=== PATIENT | male | born 1930 | race Caucasian/White ===

== ENCOUNTER 2016-04-06 10:01 | Inpatient (IN) | payer OTHER ==
--- NOTE | ~2016-04-06 | DS ---
Discharge Summary [facility] [address] [place]. [address] NAME: ANSLEY LONGORIA : 29 STATUS : DIS IN PAT#: [id number] AGE: 85 ADM/REG DATE : 04/06/16 MR#: [id number] REPORT SERV DATE: 04/12/16 DICTATED BY: RAMAKRISHNA NICKERSON DATE: 04/11/16 REPORT STATUS : Draft TRANSCRIBED BY: MODL DATE: 04/11/16 ADMISSION DATE: 04/06/2016 DISCHARGE DATE: 04/11/2016 DISCHARGE DIAGNOSES: 1. Hypoxic respiratory failure, acute on chronic, now requiring 2 liters of O2 in the home setting; systolic congestive heart failure, acute on chronic. 2. Acute kidney injury. Current creatinine stable at 1.6. 3. Urinary retention, status post Miranda catheter to be followed up in the outpatient setting by Urology. 4. Chronic anemia due to chronic disease. 5. Obstructive uropathy. 6. Paroxysmal atrial fibrillation. 7. Dual-chamber implantable cardioverter defibrillator to be upgraded to a biventricular pacer. 8. History of syncope. 9. Benign prostatic hypertrophy, status post transurethral resection of the prostate. 10.Coronary artery disease, status post coronary artery bypass graft x3 in the past. 11.History of atrial septal defect and ventricular septal defect repair. 12.Monoclonal gammopathy of unknown significance. 13.Longstanding ischemic cardiomyopathy. 14.Debility. CONSULTANTS DURING THIS HOSPITALIZATION: 1. Ish Stahl M.D. and Ranjith Mckeon M.D. of Cardiology. 2. Lester Cooney M.D. of [facility]. INVASIVE PROCEDURES DONE DURING THIS HOSPITALIZATION: None. BRIEF HISTORY OF PRESENT ILLNESS: The patient is an 85-year-old gentleman who presented with worsening shortness of breath, orthopnea, and paroxysmal nocturnal dyspnea that was ongoing for two weeks. So, he was admitted. For detailed history and physical exam, please see note dictated by Dr. Tiffanie Pereyra on 04/06/2016. HOSPITAL COURSE: After being admitted to the hospital, this patient was cared for by Dr. Nicholas Arnett and multiple consultants. Upon admission, this patient was placed on IV diuretics, oxygen support nebulizing treatments and appropriate consultation care was obtained. Cardiology saw the patient in consultation as well as Nephrology saw the patient in consultation because of significant elevation in creatinine on admission. His admission creatinine was 2.43, which has since come down to about 1.6 on the day of discharge. Nephrology signed off as this was thought to be due to benign prostatic hypertrophy and obstructive uropathy. Miranda catheter was placed, that seemed to improve his overall kidney function. At that point, Urology was consulted and Urology recommended use of finasteride and Flomax, which have been initiated and leaving the Miranda in until seen by Urology. Cardiology continued to monitor the diuretics. Dr. Arnett continued to follow the patient. Iron studies were done because of his anemia and they remained unremarkable, this was Discharge Summary [address] [place]. [address] NAME: ANSLEY LONGORIA : 29 STATUS : DIS IN PAT#: [id number] AGE: 85 ADM/REG DATE : 04/06/16 MR#: [id number] REPORT SERV DATE: 04/12/16 DICTATED BY: RAMAKRISHNA NICKERSON DATE: 04/11/16 REPORT STATUS : Draft TRANSCRIBED BY: AYAD DATE: 04/11/16 thought to be an anemia of chronic disease. This patient continued to do well. His ejection fraction was in the 30s on echocardiogram. This patient continued to improve. Urology signed off his care and recommended followup in the outpatient setting in two to three weeks. Nephrology signed off his care as his obstructive uropathy was resolved. Cardiology has okayed his discharge on oral diuretics. He will be scheduled to see Dr. Ranjith Mckeon again in the office for upgrading his device to a BiV pacer. On the day of discharge, this patient required still 2 liters of nasal cannula O2. I personally checked his room air saturation, it went down to 74% at rest and quickly recovered to about 92% with 2 liters of nasal cannula, so we will arrange home O2. This was explained to the patient and he understands and agrees. We will also arrange home health care with heart failure education and an early followup with his primary care physician for further adjustments of his diuretics and medications as needed. DISCHARGE DISPOSITION: Home. DISCHARGE ACTIVITY: As tolerated. DISCHARGE DIET: Low-sodium diet. DISCHARGE MEDICATIONS: Flomax 0.4 mg one tablet daily, Proscar 5 mg once daily, aspirin 81 mg once daily, amiodarone 200 mg once daily, Bumex 2 mg twice daily, BuSpar 10 mg three times daily, Coreg 6.25 mg p.o. twice daily, Aricept 5 mg once at bedtime, gabapentin 300 mg twice daily, Imdur 60 mg once daily, Lorazepam 1 mg once at bedtime, Protonix 40 mg once daily, Zocor 20 mg once at bedtime, Tylenol 1000 mg p.o. daily p.r.n., Artificial Tears as needed, and nitroglycerin 0.4 sublingual p.r.n. DISCHARGE FOLLOWUP: With Dr. Ranjith Mckeon to be scheduled by his office. With Dr. Christopher Ferrara in one week. More than 40 minutes spent planning this patient's discharge, reconciling medications, writing prescriptions, discussing hospital care and follow up with the patient, arranging home O2, and documenting this discharge. MARY/AYAD Ramakrishna Nickerson M.D. / [id number] CC: Malcolm Hoyos M.D. Kymber Habenicht, M.D. Gregg Shander, M.D.
--- NOTE | ~2016-04-06 | PRECARD ---
H&P [address] [place]. [address] NAME: ANSLEY OWENS : 29 STATUS : ADM IN [facility]#: [id number] AGE: 85 ADM/REG DATE : 04/06/16 MR#: [id number] REPORT SERV DATE: 04/06/16 DICTATED BY: MALU STAHL DATE: 04/06/16 REPORT STATUS : Draft TRANSCRIBED BY: AYAD DATE: 04/06/16 DATE OF ADMISSION: 04/06/2016 HISTORY OF PRESENT ILLNESS: Mr. Ansley Owens is an 85-year-old gentleman, referred by the Hospitalist Service with heart failure symptoms. Mr. Owens has a rather complex medical history. He has had history of ASD and VSD, which has undergone repair. He has ischemic cardiomyopathy, he has undergone bypass surgery 1979, 1992, and 2005. The ejection fraction about 30%. He has a dual-chamber ICD. His ICD is about 10 years old. He also had a history of atrial tachycardia and atrial fibrillation. He has been on amiodarone. He is not on anticoagulation because of history of GI bleeds with arteriovenous malformations. He describes an approximate 1 month history of dyspnea. He describes orthopnea and PND. He has had dyspnea on exertion with leg edema. He has had no AICD shocks. He describes occasional episodes of chest discomfort. These seem to occur randomly, sporadically. No clear association with exertion. PAST MEDICAL HISTORY: GI Bleed, a trial fibrillation, SVT, ASD, VSD. HOME MEDICATIONS: 1. Tylenol. 2. Amiodarone 200 daily. 3. Requip. 4. Artificial Tears. 5. Aspirin. 6. Bumex 2 mg p.o. b.i.d. 7. BuSpar. 8. Carvedilol 6.25 mg b.i.d. 9. Aricept 5 at bedtime. 10.Lasix 40 daily. 11.Neurontin. 12.Isosorbide mononitrate. 13.Lorazepam. 14.Nitroglycerin sublingual. 15.Protonix. 16.Simvastatin 20 at bedtime. SOCIAL: No alcohol or tobacco, previously smoked. FAMILY HISTORY: Noncontributory. H&P [address] [address] NAME: ANSLEY OWENS : 29 STATUS : ADM IN PAT#: [id number] AGE: 85 ADM/REG DATE : 04/06/16 MR#: [id number] REPORT SERV DATE: 04/06/16 DICTATED BY: MALU STAHL DATE: 04/06/16 REPORT STATUS : Draft TRANSCRIBED BY: AYAD DATE: 04/06/16 REVIEW OF SYSTEMS: Complete review of systems obtained, pertinent negative and unremarkable except as noted above and below. No hematochezia, melena, or hemoptysis recently. PHYSICAL EXAMINATION: VITAL SIGNS: Blood pressure is about 130/70, heart rate about 60. GENERAL: Appears in minimal distress, chronically ill. HEENT: No xanthelasma; lips without cyanosis LUNGS: Clear to auscultation, no wheezes, rales or rhonchi; good breath sounds. COR: A 2/6 systolic murmur at the left lower sternal border. ABDOMEN: Bowel sounds positive, normal activity, without tenderness, masses or hepatosplenomegaly. EXTREMITIES: 4/4 severe edema. SKIN: Normal turgor. Ms: Normal muscle strength, without kyphosis/scoliosis. NEURO/PSYCH: Alert and oriented times 4, no apparent anxiety or depression. LABORATORY DATA: Creatinine is 2.4, hematocrit 33.8, troponin 0.03. BNP 456. EKG is AV paced. ASSESSMENT: Mr. Owens is a very nice 85-year-old gentleman with ischemic cardiomyopathy. He has symptoms about a month. He has severe leg edema. His creatinine is elevated at 2.4, the BNP is 456. Troponin is 0.03. PLAN: 1. We will interrogate his [employer] AICD, it appears to be close to end-of-life, it is 10 years old. 2. Nephrology has been consulted, I will defer to them about the diuretic regimen. 3. He may be a candidate for a biventricular pacing in the future. KAREN/AYAD Malu Stahl M.D. / [id number] CC: Malcolm Hicks M.D.
--- NOTE | ~2016-04-06 | CN ---
Consultation Report [facility] [address] [place]. [address] NAME: ANSLEY OWENS : 29 STATUS : ADM IN PAT#: [id number] AGE: 85 ADM/REG DATE : 04/06/16 MR#: [id number] REPORT SERV DATE: 04/07/16 DICTATED BY: DATE: REPORT STATUS : Draft TRANSCRIBED BY: MODL DATE: 04/06/16 CONSULTATION REPORT DATE OF CONSULTATION: REASON FOR CONSULTATION: Acute kidney injury. HISTORY OF PRESENT ILLNESS: Mr. Owens is an 85-year-old white male with CKD, baseline of 1.5. He also has a longstanding history of CHF with EF of 30%; coronary artery disease, multiple bypasses and stents. He presents to the hospital for shortness of breath and orthopnea. Recently, his primary care doctor for increasing edema had gone from 1 mg of Bumex daily up to 2 mg twice daily. Despite this, he has had worsening edema. He also stopped urinating. He had actually been having trouble with urinary hesitancy and incomplete bladder emptying for approximately a month now. He does have a history of BPH with TURP that has been a long time ago up in [place], [place]. He presented to the hospital, his creatinine was 2.4, and we were asked to see him in consultation. In the emergency department, before my arrival, he did have a Miranda placed and immediately had a 1 liter return of urine. He has also had significant urine output since. His shortness of breath is already better. Denies any fevers, chills, cough, or congestion. No chest pain, tightness, or pressure. PAST MEDICAL HISTORY: CKD with baseline of 1.5, CHF with EF of 60, coronary artery disease with multiple bypasses and stents, GI bleed, reflux, dementia, BPH with TURP, paroxysmal atrial fibrillation, monoclonal gammopathy of unknown significance, chronic back pain, paroxysmal atrial fibrillation, SVT, mitral regurgitation, and ASD with repair. SOCIAL HISTORY: He is . Has a distant history of tobacco. No alcohol or illicit drug use. ALLERGIES: NAPROXEN AND MORPHINE. MEDICATIONS: Acetaminophen, amiodarone, Artificial Tears, aspirin, Bumex, BuSpar, Coreg, Aricept, furosemide, gabapentin, isosorbide, lorazepam, nitroglycerin, simvastatin, and Protonix. FAMILY MEDICAL HISTORY: No end-stage renal disease. REVIEW OF SYSTEMS: A 12-point review of systems was obtained, negative with the exception of that in the HPI. PHYSICAL EXAMINATION: VITAL SIGNS: Temp 96.9, blood pressure 133/69, pulse 60, respiratory rate 22, and O2 saturation of 95%. GENERAL: This is a pleasant, cooperative white male. He is awake, alert, and oriented x3, Consultation Report [address] [place]. [address] NAME: ANSLEY OWENS : 29 STATUS : ADM IN PAT#: [id number] AGE: 85 ADM/REG DATE : 04/06/16 MR#: [id number] REPORT SERV DATE: 04/07/16 DICTATED BY: DATE: REPORT STATUS : Draft TRANSCRIBED BY: AYAD DATE: 04/06/16 in no acute distress, and answers questions appropriately. HEENT: Normocephalic and atraumatic. Conjunctivae are clear. Sclerae are anicteric. Pupils are equal and round. Oral mucosa is moist. NECK: Supple. Carotids are without bruits. Neck veins are flat. No lymphadenopathy. LUNGS: Respirations are even and unlabored. He has a few crackles to bases, right greater than left. HEART: Rate is regular. He does have a systolic murmur. No rub or gallop. ABDOMEN: Soft and nontender. Bowel sounds are active. No masses. No hepatosplenomegaly. No bruits. No CVA tenderness. BACK: Within normal limits. EXTREMITIES: He has trace to 1+ pitting edema. SKIN: Pale. No unusual rashes or skin lesions. NEURO: Generalized weakness. No focal deficits. Mood and affect, pleasant and appropriate. PERTINENT LABS AND X-RAYS: BNP of 456. Chest x-ray without any significant edema. Sodium 142, potassium 3.9, chloride 102, CO2 30, BUN of 58, creatinine of 2.4, calcium 8.2, and magnesium of 2. Troponin of 0.03. WBC 5, H and H of 11 and 33, and platelets 107,000. ABG with pH of 7.3, pCO2 of 53, PO2 of 113, and bicarb of 29. IMPRESSION: 1. Acute kidney injury. 2. Chronic kidney disease, stage III with baseline of 1.5. 3. Urinary retention with lower urinary tract symptoms x1 month. 4. History of benign prostatic hypertrophy with transurethral resection of the prostate. 5. Congestive heart failure. 6. Coronary artery disease. PLAN/RECOMMENDATION: Most likely his acute kidney injury is secondary to obstruction as he has already had significant diuresis. We will follow I's and O's, labs, check urine studies. He has a Miranda that we will leave in place and ask Urology to see him, and we will follow along with you. Further recommendations regarding diuretic management to come. We will follow along with you. Thank you for the consultation. Strict I's and O's. Daily labs. BRODY/AYAD LISA Tenorio / [id number] Consultation Report [address] [place]. [address] NAME: ANSLEY OWENS : 29 STATUS : ADM IN PAT#: [id number] AGE: 85 ADM/REG DATE : 04/06/16 MR#: [id number] REPORT SERV DATE: 04/07/16 DICTATED BY: DATE: REPORT STATUS : Draft TRANSCRIBED BY: AYAD DATE: 04/06/16 CC: Malcolm Hicks M.D.
--- NOTE | ~2016-04-06 | CN ---
Consultation Report [facility] [address] [place]. [address] NAME: ANSLEY LONGORIA : 29 STATUS : ADM IN PAT#: [id number] AGE: 85 ADM/REG DATE : 04/06/16 MR#: [id number] REPORT SERV DATE: 04/08/16 DICTATED BY: LESTER COONEY DATE: 04/07/16 REPORT STATUS : Draft TRANSCRIBED BY: MODL DATE: 04/07/16 UROLOGY CONSULT DATE OF CONSULTATION: 04/07/2016 This consult is from Dr. Pereyra regarding urinary retention. CHIEF COMPLAINT: "I couldn't empty my bladder." HISTORY: This is an 85-year-old gentleman who presented to the [facility] Emergency Room yesterday because of worsening shortness of breath, dyspnea, generalized weakness, and worsening edema. This was despite an increased dose of Bumex over the past 2 weeks. Amongst other findings, he had a Miranda catheter placed and 1 L of urine was drained from his bladder. The patient states he was having difficulty voiding prior to admission. The patient states he had a TURP in the s in [place], [place]. He then moved away after that and has just moved back to [place] here in the past several years. He has not had any voiding problems until just these past several weeks. He does not have a current urologist. PAST MEDICAL HISTORY: Coronary artery disease, congestive heart failure with an ejection fraction of 31%; dilated aortic root; GI bleed with an AV malformation treated by Dr. Murcia; history of atrial fibrillation; congenital heart disease, repaired in 1979 which appears to have been atrial septal defect and a ventricular septal defect; moderate mitral regurgitation. He takes dementia medication. Chronic kidney disease, stage 3, baseline creatinine between 1.5 and 1.6. Monoclonal gammopathy. Paroxysmal atrial fibrillation. Chronic respiratory failure secondary to CHF exacerbation. History of supraventricular tachycardia. History of AICD malfunction. Chronic back pain due to chronic back and disk disease. PAST SURGICAL HISTORY: Coronary artery bypass, pacer ICD placement, TURP, appendectomy, ASD, ventricular septal defect repair, multiple coronary artery stent placements at least 12 times. ALLERGIES: MORPHINE AND NAPROXEN. MEDICATIONS ON ADMISSION: Tylenol 1000 mg a day p.r.n., amiodarone, Artificial Tears, aspirin 81 mg a day, Bumex 2 mg twice a day, BuSpar 10 mg 3 times a day, carvedilol. Aricept, Lasix 40 mg a day, Neurontin 300 mg twice a day, isosorbide, Ativan 1 mg at bedtime, nitroglycerin as needed, Protonix, and simvastatin. SOCIAL HISTORY: He is . He and his live next door to his daughter in [place]. He has quit smoking in 1979. Denies any alcohol abuse. He does occasionally drink a beer. 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 REVIEW OF SYSTEMS: Consultation Report [facility] [address] [place]. [address] NAME: ANSLEY LONGORIA : 28 STATUS : ADM IN [facility]#: [id number] AGE: 85 ADM/REG DATE : 04/06/16 MR#: [id number] REPORT SERV DATE: 04/08/16 DICTATED BY: LESTER COONEY DATE: 04/07/16 REPORT STATUS : Draft TRANSCRIBED BY: AYAD DATE: 04/07/16 GENERAL: He denies any fevers, but he is weak. NEUROLOGIC: Denies symptoms. LUNGS: As above. HEART: As above. GI: Denies symptoms. : As above. MUSCULOSKELETAL: As above. PHYSICAL EXAMINATION: VITAL SIGNS: Shows he is afebrile. Blood pressure 135/68, pulse of 60, respirations of 18, he is saturating 92% on 3 L nasal cannula. He has had 800 mL in today and 1875 mL out, one bowel movement today. GENERAL: He is in no acute distress. NEUROLOGIC: Alert and oriented x3. PSYCHIATRIC: Appropriate. HEENT: Facial features symmetric. Eyes: Sclerae anicteric. NECK: Supple. LUNGS: Decreased inspiratory effort bilaterally. HEART: Regular rate and rhythm. ABDOMEN: Soft. EXTREMITIES: Show bilateral lower extremity edema. Urine is clear. LABORATORY STUDIES: White count of 4.7, hemoglobin 11.2, and platelets of 108. His creatinine has decreased to 2.16 from 2.43. Renal ultrasound obtained today shows normal kidneys bilaterally without any evidence of hydroureteronephrosis or masses. Bladder is collapsed around the Miranda catheter balloon. IMPRESSION: 1. Urinary retention. 2. Overdistention injury of the bladder. PLAN: 1. Primary team started Flomax today. We will add finasteride to that. Prescriptions on the chart. 2. Miranda catheter needs to stay in for 2 weeks to allow his bladder muscles to heal after the overdistention injury. 3. He may follow up in my office in 2 weeks for a fill and pull voiding trial in office visit. I have discussed all of this with the patient and he is in agreement. GILBERT/AYAD Consultation Report [address] [place] [place]. [address] NAME: ANSLEY LONGORIA : 29 STATUS : ADM IN PAT#: [id number] AGE: 85 ADM/REG DATE : 04/06/16 MR#: [id number] REPORT SERV DATE: 04/08/16 DICTATED BY: LESTER COONEY DATE: 04/07/16 REPORT STATUS : Draft TRANSCRIBED BY: AYAD DATE: 04/07/16 Lester Cooney M.D. / [id number] CC: Malcolm Grider M.D.
--- NOTE | ~2016-04-06 | HP ---
History And Physical [address] [id number] [facility] [place]. [address] NAME: ANSLEY LONGORIA : 29 STATUS : ADM IN PAT#: [id number] AGE: 85 ADM/REG DATE : 04/06/16 MR#: [id number] REPORT SERV DATE: 04/06/16 DICTATED BY: TARA GASTELUM DATE: 04/06/16 REPORT STATUS : Draft TRANSCRIBED BY: MODL DATE: 04/06/16 DATE OF ADMISSION: 04/06/2016 COFFEE ROASTER: Ranjith Mckeon M.D. HISTORY OF PRESENT ILLNESS: The patient is extremely pleasant 85-year-old male who presented to [facility] because of worsening shortness of breath, orthopnea, and paroxysmal nocturnal dyspnea for the last two weeks, which was progressively increasing. He also passed out one time, although he immediately regained his consciousness. He was complaining of tightness in the chest and being swollen overall in the body and in his legs, weakness, fatigue, as well as his dose of Bumex was increased from 1 mg as needed to 2 mg twice a day by primary care physician, but he was not producing enough urine, he was unable to urinate. On presentation to emergency room, the patient was hypoxemic and his oxygen saturation was 76 and he was placed on nonrebreather. It increased to 94%. Now he is on 4 L by nasal cannula. He now denies any chest pain, no shortness of breath. Miranda catheter was placed and immediately more than 1 L of urine came out, and the patient felt some relief as well as emergency room physician, Dr. Hawkins gave the patient 2 mg of Bumex intravenously. Currently, he is feeling better. No chest pain. No shortness of breath at rest. All 14- point review of systems done and negative except what is stated in the history of present illness. PAST MEDICAL HISTORY: Known for history of coronary artery disease with 3 separate coronary artery bypass grafting operation; history of congestive heart failure with last echocardiogram done last month in 02/2016 showed ejection fraction of 31% with dilated aortic root; history of GI bleed with arteriovenous malformation treated by Dr. Murcia; history of atrial fibrillation; history of congenital heart disease what appears to be an atrial septal defect and ventricular septal defect repair in 1979; moderate mitral regurgitation, although the patient denies dementia, but he is on dementia medicine; history of chronic kidney disease, stage 3 with baseline creatinine between 1.5 to 1.6; history of monoclonal gammopathy of undetermined significance. He also had paroxysmal atrial fibrillation, but he is not a candidate for anticoagulation; chronic respiratory failure secondary to CHF exacerbation last admission; history of supraventricular tachycardia; history of AICD malfunction and they said that his AICD needs to be updated and he had an appointment with Dr. Mckeon, but he missed his appointment because he got hospitalized now; history of chronic back pain with chronic steroid injections into his back. PAST SURGICAL HISTORY: Includes coronary artery bypass operation, pacer ICD placement, transurethral prostatic resection, appendectomy as a child, ASD and ventricular septal defect repair in 1979 as well as he has multiple stent placements at least 12 stent placements. ALLERGIES: HE IS ALLERGIC TO MORPHINE AND NAPROXEN. SOCIAL HISTORY: Quit smoking in 1979. No alcohol abuse. Drinks occasionally beer. He lives in [place], [place]. . His and daughter are at the bedside. He denies any recreational drug use. No smoking. 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 History And Physical [address] [address] NAME: ANSLEY LONGORIA : 29 STATUS : ADM IN [facility]#: [id number] AGE: 85 ADM/REG DATE : 04/06/16 MR#: [id number] REPORT SERV DATE: 04/06/16 DICTATED BY: TARA GASTELUM DATE: 04/06/16 REPORT STATUS : Draft TRANSCRIBED BY: AYAD DATE: 04/06/16 FAMILY HISTORY: His mother at the age of 89 from heart disease and father from Parkinson disease. HOME MEDICATIONS: Include Tylenol 1000 mg daily as needed; amiodarone 200 mg daily; artificial tears daily; aspirin 81 mg daily; Bumex 2 mg twice a day; BuSpar 10 mg three times daily; carvedilol 6.25 mg p.o. b.i.d., Aricept 5 mg daily; Lasix 40 mg daily was added by primary care physician recently to Bumex; Neurontin 300 twice a day; isosorbide 160 mg daily; Ativan 1 mg at bedtime; nitroglycerin 0.4 as needed for chest pain; Protonix 40 mg daily; simvastatin 40 mg daily. PHYSICAL EXAMINATION: GENERAL: Obese male, not in acute distress. Resting quietly. VITAL SIGNS: Blood pressure 110/62, temperature 97.5, heart rate 60, respiratory rate 20, oxygen saturation initially was 76% on room air. Currently, he is on 4 L nasal cannula. Oxygen saturation 96. HEENT: Head atraumatic and normocephalic. Conjunctivae clear. Pupils are equal and reactive to light and accommodation. Extraocular muscles are intact. NECK: Supple. Trachea is midline. No supraclavicular or cervical lymphadenopathy. LUNGS: Diminished breath sounds bilaterally with slightly decreased respiratory effort. No respiratory distress. CARDIOVASCULAR: Regular rate and rhythm. Point of maximal impulse not displaced. ABDOMEN: Obese, soft, nontender, mildly distended, edematous, anasarca positive. No organomegaly. EXTREMITIES: No clubbing, cyanosis. 1+ edema. NEUROLOGIC: Awake, alert, and oriented in time, place, and person. Muscle strength is 5/5 bilaterally in upper and lower extremities. PSYCHIATRIC: Normal mood and affect. LABORATORY RESULTS: Sodium 142, potassium 3.9, chloride 102, carbon dioxide 30, BUN 58, creatinine 2.43, blood sugar 97. Troponin 0.03. Magnesium 2. His baseline creatinine on 02/14/2016 was 1.5. BNP was 456. White count 5, hemoglobin 11.1, hematocrit 33.8, and platelet count 107. PT 15.7, INR 1.3. Chest x-ray showed mild central venous congestion, small amount of right pleural fluid with right basilar atelectasis. ABG showed pH of 7.37, pCO2 53, pO2 113, bicarbonate 29.7, and oxygen saturation was 98.1 on 32% oxygen. EKG showed AV dual paced rhythm with a rate of 60. ASSESSMENT: 1. This is a very pleasant 85-year-old male with a past medical history of chronic congestive heart failure, chronic systolic dysfunction, chronic kidney disease, history of coronary artery disease, history of pacemaker automatic implantable cardioverter defibrillator placement, presented with acute congestive heart failure exacerbation, acute on chronic systolic dysfunction, anasarca, and edema. 2. Acute kidney injury on chronic kidney disease. 3. History of coronary artery disease. 4. Weakness secondary to above. History And Physical [address] [address] NAME: VONANSLEY GUADALUPE : 29 STATUS : ADM IN PAT#: [id number] AGE: 85 ADM/REG DATE : 04/06/16 MR#: [id number] REPORT SERV DATE: 04/06/16 DICTATED BY: TARA GASTELUM DATE: 04/06/16 REPORT STATUS : Draft TRANSCRIBED BY: AYAD DATE: 04/06/16 PLAN: 1. Regarding his congestive heart failure, the patient is currently not in respiratory distress and he is feeling better. He already received 2 mg of Bumex today. We are going to monitor him. If necessary, he will receive another dose of Bumex. 2. Acute kidney injury on chronic kidney disease. The patient's baseline creatinine less than a month ago was 1.5 and his dose of diuretic was increased from 1 mg as needed to 2 mg twice a day. He now is in acute kidney injury. The patient reported that he could not urinate at home, but once Miranda catheter was placed, large amount of urine came out. So, question if this was related to urinary retention, the patient had history of enlarged prostate in the past and he had a transurethral prostate resection. With increased load of urine because of increased dose of diuretic, there is a possibility that the patient had relative obstruction and with a Miranda catheter, it is now resolved, so there is a possibility that his acute kidney injury is related to obstruction now with Miranda placement. We will check his creatinine tomorrow. Differential diagnosis also includes acute kidney injury secondary to diuresis, so we will be gentle on his diuretic depending on creatinine tomorrow. We will try to avoid another dose, but if necessary we will give it to him. We will ask weigh tank operator to see this patient in consultation regarding recommendation of diuresis. 3. Hypoxemia was related to congestive heart failure. It is better now, so with diuresis, we expect the hypoxemia to improve. 4. History of automatic implantable cardioverter defibrillator placement and history of malfunction of automatic implantable cardioverter defibrillator. The family reported that the patient had an appointment with Dr. Mckeon regarding changing his pacemaker and they requested Dr. Mckeon to see this patient while he is inpatient with possibility maybe changing pacemaker. Everything was discussed with the patient and family and my partner will see this patient starting tomorrow morning. MG/MODL Tara Gastelum M.D. / [id number] CC: Malcolm Hicks M.D. Gregg Shander, M.D.
[2016-04-06 09:50] LABS: ALLENS TEST Pos; BE (BASE EXCESS) 3.5 MEQ/L (0 +/- 2.5); CARBOXYHEMOGLOBIN 1.6 % (0-3); HCO3 (ACTUAL BICARBONATE) 29.7 MEQ/L (23-27); INSTRUMENT SERIAL # 8087; METHEMOGLOBIN 0.1 % (0-3); O2 CONTENT 16.4 VOL% (18-24); OPERATOR ID 14335; PCO2 (CO2 TENSION) 53 MMHG (35-45); PO2 (O2 TENSION) 113 MMHG (79-93); SAMPLE Arterial; pH 7.37 (7.37-7.43)
[2016-04-06 09:50] LABS: BASOPHILS 0.4 %; BASOPHILS ABSOLUTE 0.02 10/3/uL (0.0-0.16); EOSINOPHILS 1.8 %; EOSINOPHILS ABSOLUTE 0.09 10/3/uL (0.0-0.53); ER CBC TAT 0 Hrs 07 Mins; HEMATOCRIT 33.8 % (40.0-51.0); HEMOGLOBIN 11.1 g/dL (13.6-17.8); IMMATURE GRANULOCYTES 0.6 %; IMMATURE GRANULOCYTES ABSOLUTE 0.03 10/3/uL (0.0-0.11); LYMPHOCYTES 14.3 %; LYMPHOCYTES ABSOLUTE 0.71 10/3/uL (0.67-4.30); MEAN CORPUS HGB CONC 32.8 g/dL (32.0-36.0); MEAN CORPUSCULAR HEMOGLOB 31.8 pg (26.0-34.0); MEAN CORPUSCULAR VOLUME 96.8 fL (80-100); MEAN PLATELET VOLUME 10.4 fL (9.2-13.0); MONOCYTES 6.4 %; MONOCYTES ABSOLUTE 0.32 10/3/uL (0.21-1.20); NEUTROPHILS 76.5 %; NEUTROPHILS ABSOLUTE 3.81 10/3/uL (2.02-8.40); PLATELET COUNT 107 10/3/uL (150-400); RBC DISTRIBUTION WIDTH 18.2 % (12.0-16.0); RED CELL COUNT 3.49 10/6/uL (4.7-6.1)
[2016-04-06 09:51] LABS: MANUAL DIFF NO %
[2016-04-06 09:58] LABS: INTERNATIONAL NORMAL RATI 1.3 UNITS (-); PROTIME (NOT ORD) 15.7 SEC (12.0-14.5)
[2016-04-06 09:59] LABS: PARTIAL THROMBO TIME 40.6 SEC (22.5-37.2)
[~2016-04-06 10:01] MED LIST: ACET500CAP PO; ADVIL PO; ARICEPT5 PO; ASAB PO; ASPERCREME TOP; BUM1 PO; BUM2 PO; BUSPAR10 PO; CORDARONE PO; COREG3 PO; COREG6 PO; CRESTOR20 MG PO; FERROUS SULF325 M1 PO; GOODY'S EX-STR1 EAC1 PO; IMDUR120 PO; LIQUID TEARS OPH; MAALOX PO; MELATONIN5 M1 PO; NEUR300 PO; NITROSTAT0.4 MG SL; PCET PO; PROTONIX PO; REFRESH OPH SO0.3 ML OPH; REQUIP2 PO; T PO; ZANAFLEX2 MG PO; ZOCOR20 PO
[2016-04-06 10:08] LABS: BUN (BLOOD UREA NITROGEN) 58 MG/DL (6-23); CALCIUM, SERUM 8.2 MG/DL (8.5-10.4); CHEST PAIN PROFILE TAT 0 Hrs 25 Mins; CHLORIDE, SERUM 102 MMOL/L (96-112); CO2 (CARBON DIOXIDE) 30 MMOL/L (24-34); CREATININE 2.43 MG/DL (0.70-1.30); GFR AFRICAN AMERICAN 27 ML/MIN (>=60); GFR NON AFRICAN AMERICAN 23 ML/MIN (>=60); GLUCOSE, SERUM 97 MG/DL (60-99); POTASSIUM, SERUM 3.9 MMOL/L (3.5-5.3); SODIUM, SERUM 142 MMOL/L (135-148); TROPONIN I 0.03 NG/ML (<0.05)
[2016-04-06] MEDS ORDERED: L40 PO (10:11)
[2016-04-06] MEDS ORDERED: ATV1 PO (10:11)
[2016-04-06 19:55] LABS: T PROTEIN (ELECT)(NOT OR 6.7 G/DL (6.0-8.5)
[2016-04-07 01:38] LABS: BASOPHILS 0.4 %; BASOPHILS ABSOLUTE 0.02 10/3/uL (0.0-0.16); EOSINOPHILS 1.7 %; EOSINOPHILS ABSOLUTE 0.08 10/3/uL (0.0-0.53); HEMATOCRIT 35.2 % (40.0-51.0); HEMOGLOBIN 11.2 g/dL (13.6-17.8); IMMATURE GRANULOCYTES 0.2 %; IMMATURE GRANULOCYTES ABSOLUTE 0.01 10/3/uL (0.0-0.11); LYMPHOCYTES 14.8 %; MEAN CORPUS HGB CONC 31.8 g/dL (32.0-36.0); MEAN CORPUSCULAR HEMOGLOB 31.5 pg (26.0-34.0); MEAN CORPUSCULAR VOLUME 99.2 fL (80-100); MEAN PLATELET VOLUME 10.8 fL (9.2-13.0); MONOCYTES 4.2 %; NEUTROPHILS 78.7 %; NEUTROPHILS ABSOLUTE 3.71 10/3/uL (2.02-8.40); PLATELET COUNT 108 10/3/uL (150-400); RBC DISTRIBUTION WIDTH 17.7 % (12.0-16.0); RED CELL COUNT 3.55 10/6/uL (4.7-6.1); WHITE BLOOD CELLS 4.7 10/3/uL (4.5-10.5)
[2016-04-07 01:55] LABS: MANUAL DIFF NO %
[2016-04-07 02:00] LABS: ALBUMIN 3.3 G/DL (3.5-5.0); CALCIUM, SERUM 8.5 MG/DL (8.5-10.4); CHLORIDE, SERUM 102 MMOL/L (96-112); CO2 (CARBON DIOXIDE) 32 MMOL/L (24-34); CREATININE 2.16 MG/DL (0.70-1.30); GFR AFRICAN AMERICAN 31 ML/MIN (>=60); GFR NON AFRICAN AMERICAN 27 ML/MIN (>=60); GLUCOSE, SERUM 91 MG/DL (60-99); PHOSPHORUS, SERUM 2.8 MG/DL (2.5-4.5); POTASSIUM, SERUM 4.2 MMOL/L (3.5-5.3); SODIUM, SERUM 144 MMOL/L (135-148); TROPONIN I 0.04 NG/ML (<0.05)
[2016-04-07 02:01] LABS: BUN (BLOOD UREA NITROGEN) 52 MG/DL (6-23)
[2016-04-07 18:52] LABS: FERRITIN 346 NG/ML (26-388)
[2016-04-08 06:37] LABS: BASOPHILS 0.2 %; BASOPHILS ABSOLUTE 0.01 10/3/uL (0.0-0.16); EOSINOPHILS 2.2 %; EOSINOPHILS ABSOLUTE 0.09 10/3/uL (0.0-0.53); HEMATOCRIT 35.1 % (40.0-51.0); HEMOGLOBIN 11.2 g/dL (13.6-17.8); IMMATURE GRANULOCYTES 0.5 %; IMMATURE GRANULOCYTES ABSOLUTE 0.02 10/3/uL (0.0-0.11); LYMPHOCYTES 12.7 %; LYMPHOCYTES ABSOLUTE 0.52 10/3/uL (0.67-4.30); MEAN CORPUS HGB CONC 31.9 g/dL (32.0-36.0); MEAN CORPUSCULAR HEMOGLOB 32.6 pg (26.0-34.0); MEAN PLATELET VOLUME 10.6 fL (9.2-13.0); MONOCYTES 9.8 %; NEUTROPHILS 74.6 %; NEUTROPHILS ABSOLUTE 3.06 10/3/uL (2.02-8.40); PLATELET COUNT 96 10/3/uL (150-400); RBC DISTRIBUTION WIDTH 17.8 % (12.0-16.0); RED CELL COUNT 3.44 10/6/uL (4.7-6.1); WHITE BLOOD CELLS 4.1 10/3/uL (4.5-10.5)
[2016-04-08 06:44] LABS: MANUAL DIFF NO %
[2016-04-08 07:23] LABS: ALBUMIN 3.3 G/DL (3.5-5.0); CALCIUM, SERUM 8.7 MG/DL (8.5-10.4); CHLORIDE, SERUM 105 MMOL/L (96-112); CO2 (CARBON DIOXIDE) 31 MMOL/L (24-34); CREATININE 1.75 MG/DL (0.70-1.30); GFR AFRICAN AMERICAN 40 ML/MIN (>=60); GFR NON AFRICAN AMERICAN 34 ML/MIN (>=60); GLUCOSE, SERUM 102 MG/DL (60-99); PHOSPHORUS, SERUM 2.5 MG/DL (2.5-4.5); SODIUM, SERUM 144 MMOL/L (135-148)
[2016-04-08 07:24] LABS: BUN (BLOOD UREA NITROGEN) 46 MG/DL (6-23)
[2016-04-09 06:33] LABS: ALBUMIN 3.3 G/DL (3.5-5.0); CALCIUM, SERUM 8.5 MG/DL (8.5-10.4); CHLORIDE, SERUM 105 MMOL/L (96-112); CO2 (CARBON DIOXIDE) 32 MMOL/L (24-34); CREATININE 1.62 MG/DL (0.70-1.30); GFR AFRICAN AMERICAN 44 ML/MIN (>=60); GFR NON AFRICAN AMERICAN 38 ML/MIN (>=60); GLUCOSE, SERUM 112 MG/DL (60-99); POTASSIUM, SERUM 4.2 MMOL/L (3.5-5.3); SODIUM, SERUM 143 MMOL/L (135-148)
[2016-04-09 06:34] LABS: BUN (BLOOD UREA NITROGEN) 40 MG/DL (6-23)
[2016-04-09 12:42] LABS: A/G 1.49 RATIO (0.9-2.10); ABNORMAL PEAK 1 0.07 G/DL; ABNORMAL PEAK 1 % 1.1 % (0); ALB RELATIVE % 59.8 % (60.0-89.0); ALBUMIN (ELECTRO) 4.01 GM/DL (3.2-5.5); ALPHA 1 (ELECTRO) 0.22 GM/DL (0.1-0.4); ALPHA 1 RELAT % (NOT ORD) 3.3 % (1.0-4.0); ALPHA 2 (ELECTRO) 0.72 GM/DL (0.5-1.10); ALPHA 2 RELAT % 10.8 % (4.5-26.0); BETA GLOBULIN (SPE) 0.68 GM/DL (0.60-1.30); BETA RELATIVE % 10.2 % (9.0-22.0); GAMMA GLOBULIN (SPE) 1.07 G/DL (0.70-1.60); GAMMA RELAT % 15.9 % (6.0-22.0)
[2016-04-10 07:02] LABS: BASOPHILS 0.5 %; BASOPHILS ABSOLUTE 0.02 10/3/uL (0.0-0.16); EOSINOPHILS ABSOLUTE 0.08 10/3/uL (0.0-0.53); HEMATOCRIT 34.4 % (40.0-51.0); HEMOGLOBIN 10.8 g/dL (13.6-17.8); IMMATURE GRANULOCYTES 0.3 %; IMMATURE GRANULOCYTES ABSOLUTE 0.01 10/3/uL (0.0-0.11); LYMPHOCYTES 13.6 %; LYMPHOCYTES ABSOLUTE 0.54 10/3/uL (0.67-4.30); MEAN CORPUS HGB CONC 31.4 g/dL (32.0-36.0); MEAN CORPUSCULAR HEMOGLOB 32.3 pg (26.0-34.0); MEAN PLATELET VOLUME 10.6 fL (9.2-13.0); MONOCYTES 6.3 %; MONOCYTES ABSOLUTE 0.25 10/3/uL (0.21-1.20); NEUTROPHILS 77.3 %; NEUTROPHILS ABSOLUTE 3.08 10/3/uL (2.02-8.40); PLATELET COUNT 88 10/3/uL (150-400); RBC DISTRIBUTION WIDTH 17.2 % (12.0-16.0); RED CELL COUNT 3.34 10/6/uL (4.7-6.1)
[2016-04-10 07:06] LABS: MANUAL DIFF NO %
[2016-04-10 07:25] LABS: ALBUMIN 3.3 G/DL (3.5-5.0); CALCIUM, SERUM 8.5 MG/DL (8.5-10.4); CHLORIDE, SERUM 102 MMOL/L (96-112); CO2 (CARBON DIOXIDE) 34 MMOL/L (24-34); CREATININE 1.57 MG/DL (0.70-1.30); GFR AFRICAN AMERICAN 46 ML/MIN (>=60); GFR NON AFRICAN AMERICAN 39 ML/MIN (>=60); GLUCOSE, SERUM 108 MG/DL (60-99); POTASSIUM, SERUM 4.3 MMOL/L (3.5-5.3); SODIUM, SERUM 143 MMOL/L (135-148)
[2016-04-10 07:26] LABS: BUN (BLOOD UREA NITROGEN) 35 MG/DL (6-23)
[2016-04-11 07:05] LABS: BUN (BLOOD UREA NITROGEN) 35 MG/DL (6-23); CALCIUM, SERUM 8.4 MG/DL (8.5-10.4); CHLORIDE, SERUM 100 MMOL/L (96-112); CO2 (CARBON DIOXIDE) 34 MMOL/L (24-34); CREATININE 1.65 MG/DL (0.70-1.30); GFR AFRICAN AMERICAN 43 ML/MIN (>=60); GFR NON AFRICAN AMERICAN 37 ML/MIN (>=60); GLUCOSE, SERUM 99 MG/DL (60-99); POTASSIUM, SERUM 4.2 MMOL/L (3.5-5.3); SODIUM, SERUM 140 MMOL/L (135-148)
[2016-04-11] MEDS ORDERED: PROSCAR5 PO (10:41)
[2016-04-11] MEDS ORDERED: FLOMAX4 PO (10:44)
[2016-04-19] MEDS ORDERED: BUM1 PO (09:12)
[2016-04-19] MEDS ORDERED: ZOCOR20 PO (09:13)
[2016-04-20] MEDS ORDERED: ULTRAM50 PO (14:14)
== END 2016-04-11 12:49 | disposition home health service (06) | DRG 291 ==
LOC: ER 10:01 → 6NO 12:42
PROVIDERS: Hospitalist; Internal Medicine; Internal Medicine Cardiovascular Disease; Internal Medicine Nephrology; Nurse Practitioner
PROC: 4B02XTZ Measurement of Cardiac Defibrillator, External Approach (ICD-10-PCS; principal; 2016-04-06)
DX: I13.0 Hypertensive heart and chronic kidney disease with heart failure and stage 1 through stage 4 chronic kidney disease, or unspecified chronic kidney disease (principal); I50.23 Acute on chronic systolic (congestive) heart failure; J96.21 Acute and chronic respiratory failure with hypoxia; N17.9 Acute kidney failure, unspecified; J96.10 Chronic respiratory failure, unspecified whether with hypoxia or hypercapnia; D47.2 Monoclonal gammopathy; I47.1 Supraventricular tachycardia; I25.5 Ischemic cardiomyopathy; R33.9 Retention of urine, unspecified; D63.8 Anemia in other chronic diseases classified elsewhere; I48.0 Paroxysmal atrial fibrillation; N40.0 Benign prostatic hyperplasia without lower urinary tract symptoms; I25.10 Atherosclerotic heart disease of native coronary artery without angina pectoris; I44.7 Left bundle-branch block, unspecified; N18.3 Chronic kidney disease, stage 3 (moderate); G89.29 Other chronic pain; M47.812 Spondylosis without myelopathy or radiculopathy, cervical region; I34.0 Nonrheumatic mitral (valve) insufficiency; Z88.5 Allergy status to narcotic agent; Z87.891 Personal history of nicotine dependence; Z87.74 Personal history of (corrected) congenital malformations of heart and circulatory system; Z95.5 Presence of coronary angioplasty implant and graft; Z95.810 Presence of automatic (implantable) cardiac defibrillator; Z79.82 Long term (current) use of aspirin; Z95.1 Presence of aortocoronary bypass graft
CPT/HCPCS: 71010; 76775; 80048; 80069; 82728; 82805; 83735; 83880; 84155; 84165; 84443; 84484; 85025; 85610; 85730; 93005; 96374; 99285; A9270-GY

== ENCOUNTER 2016-05-11 11:42 | Inpatient (IN) | payer OTHER ==
[2016-05-10 15:24] LABS: A/G RATIO 1.1 (0.7-1.9); ALBUMIN 3.5 G/DL (3.5-5.0); ALKALINE PHOSPHATASE 107 U/L (45-117); BUN (BLOOD UREA NITROGEN) 39 MG/DL (6-23); CALCIUM, SERUM 8.4 MG/DL (8.5-10.4); CHLORIDE, SERUM 102 MMOL/L (96-112); CO2 (CARBON DIOXIDE) 33 MMOL/L (24-34); GFR AFRICAN AMERICAN 36 ML/MIN (>=60); GFR NON AFRICAN AMERICAN 31 ML/MIN (>=60); GLOBULIN 3.1 G/DL (2.5-4.1); GLUCOSE, SERUM 94 MG/DL (60-99); POTASSIUM, SERUM 4.3 MMOL/L (3.5-5.3); SGOT(AST) 14 U/L (5-40); SGPT(ALT) 14 U/L (5-65); SODIUM, SERUM 141 MMOL/L (135-148); TOTAL BILIRUBIN 0.7 MG/DL (0-1.2); TOTAL PROTEIN 6.6 G/DL (6.0-8.5)
--- NOTE | ~2016-05-11 | DS ---
Discharge Summary [facility] [address] [facility] [place]. [address] NAME: ANSLEY LONGORIA : 29 STATUS : DIS IN PAT#: [id number] AGE: 85 ADM/REG DATE : 05/11/16 MR#: [id number] REPORT SERV DATE: 05/15/16 DICTATED BY: REMA TARANGO DATE: 05/14/16 REPORT STATUS : Draft TRANSCRIBED BY: MODL DATE: 05/14/16 ADMISSION DATE: 05/11/2016 DISCHARGE DATE: 05/14/2016 PRINCIPAL DIAGNOSES: Acute on chronic systolic congestive heart failure with anasarca and right-sided symptoms, consistent with cor pulmonale. SECONDARY DIAGNOSIS: Atrial fibrillation, chronic kidney disease, pancytopenia due to monoclonal gammopathy of unknown significance. HISTORY OF PRESENT ILLNESS: Please see my dictation on 05/11/2016. HOSPITAL COURSE: Admitted with volume overload on his 3rd hospitalization within a few months for congestive heart failure. The patient had been on a reasonable regimen; however, due to markedly low blood pressure, his Coreg was changed to metoprolol. He was on a fairly high dose of Imdur. This was discontinued after the reduction. He was initiated with hydralazine. He did not tolerate AMINATA inhibitor and angiotensin-receptor param. The patient initially had ineffective diuresis, but it was determined that the patient was sitting up throughout the evening, and he was re-educated regarding body positioning and placed supine with his legs up and a tremendous diuresis was successful, greater than 4 L each day for 2 consecutive days with decreased abdominal girth, decreased genital swelling, and improvement in the way his legs felt. The patient actually wished to go home on 05/14/2016, I felt that this is satisfactory. I discussed the case with Dr. Mckeon. He was released in a satisfactory condition with Demadex daily with instructions of daily weights and gradual reduction in the dose as his weight continued to decline. Magnesium and potassium supplements, hydralazine 25 b.i.d., metoprolol 25 daily, Ceftin 500 b.i.d. for UTI for three additional days, Backus p.r.n. for low back pain, Flomax, Imdur 30 per day, Proscar, aspirin, amiodarone, Protonix, Zocor, Neurontin for his sciatica. He will follow up with Dr. Ranjith Mckeon as previously scheduled, with Dr. Christopher Ferrara in one to two weeks. Home Health visit for CHF protocol was initiated. SUSHIL/AYAD Rema Tarango M.D. / [id number] CC: Malcolm Joyner M.D. Gregg Shander, M.D. Paul G Smith, M.D.
--- NOTE | ~2016-05-11 | CN ---
Consultation Report [address] [place]. [address] NAME: ANSLEY OWENS : 29 STATUS : ADM IN PAT#: [id number] AGE: 85 ADM/REG DATE : 05/11/16 MR#: [id number] REPORT SERV DATE: 05/11/16 DICTATED BY: KARL BENITEZ DATE: 05/11/16 REPORT STATUS : Draft TRANSCRIBED BY: MODL DATE: 05/11/16 CARDIOLOGY CONSULTATION DATE OF CONSULTATION: 05/11/2016 PRIMARY DRIER AND EVAPORATOR OPERATOR: Ranjith Mckeon M.D. CONSULTATION REASON: Heart failure exacerbation. HISTORY OF PRESENT ILLNESS: Mr. Owens is an 85-year-old male with chronic systolic heart failure and chronic cor pulmonale. He is being readmitted with worsening lower extremity edema, abdominal distention, and ascites. His lower extremity edema has made it more difficult for him to ambulate and walk. He states that his shortness of breath is essentially unchanged. He denies having any chest pain. He did undergo a recent biventricular pacemaker upgrade. He has had no syncope or orthopnea. Due to his progressive lower extremity edema, he presented to the ER for further evaluation. EKG showed chronic atrial fibrillation with demand ventricular pacing. He was admitted to the Hospitalist Service for further evaluation and management. There have been recent discussions regarding possible pacemaker optimization and rate increase. REVIEW OF SYSTEMS: Pertinent positives and negatives except as outlined above, all others are negative. PAST MEDICAL HISTORY: 1. Chronic systolic heart failure. 2. Chronic cor pulmonale. 3. Hypertension. 4. Chronic kidney disease, stage IV. 5. Permanent pacemaker in situ. 6. Hyperlipidemia. 7. Gastroesophageal reflux disease. 8. BPH. ALLERGIES: INCLUDE MORPHINE AND NAPROXEN. CURRENT MEDICATIONS: 1. Amiodarone 200 mg daily. 2. Carvedilol 6.25 mg twice daily. 3. Lasix 20 mg twice daily. 4. Chlorthalidone 25 mg daily. 5. Imdur 120 mg daily. 6. Flomax 0.4 mg daily. 7. Zocor 20 mg at bedtime. 8. Pantoprazole 40 mg daily. Consultation Report [address] [place]. [address] NAME: ANSLEY OWENS : 29 STATUS : ADM IN PAT#: [id number] AGE: 85 ADM/REG DATE : 05/11/16 MR#: [id number] REPORT SERV DATE: 05/11/16 DICTATED BY: KARL BENITEZ DATE: 05/11/16 REPORT STATUS : Draft TRANSCRIBED BY: MODRafael DATE: 05/11/16 9. Ultram 50 mg twice daily p.r.n. 10.Zanaflex 4 mg p.r.n. 11.Aspirin 81 mg daily. 12.Proscar 5 mg daily. SOCIAL HISTORY: He does not use tobacco products or consume alcohol. FAMILY HISTORY: Significant for CAD. PHYSICAL EXAMINATION: VITAL SIGNS: Temperature is afebrile, pulse is 70, respirations 16, and blood pressure is 90/60. GENERAL: Well-developed elderly male who is lying in bed with no acute distress. HEENT: Sclerae anicteric, mucous membranes moist and without lesions. NECK: No jugular venous distention. No hepatojugular reflux, carotid upstrokes 2+ and symmetric, there are no carotid or subclavian bruit. LUNGS: Mildly decreased breath sounds throughout, more noticeable at the bilateral bases. CARDIOVASCULAR: Regular with soft S1 and normal S2. No audible S3. There is a 1-2/6 holosystolic murmur heard at the lower sternal border without radiation. No parasternal lift. PMI is not palpable. ABDOMEN: Obese and distended, but soft and nontender. Bowel sounds are positive and normoactive. There is a positive fluid wave. PULSES: Radial and dorsalis pedis pulses are 1+ and symmetric. EXTREMITIES: Warm with 3 to 4+ lower extremity edema pitting to the sacrum. SKIN: No clubbing or cyanosis, no rashes or lesions. ACCESSORY DATA: Admission labs with a creatinine of 1.9 and potassium 4.3. IMPRESSION: 1. Acute on chronic cor pulmonale. 2. Chronic systolic heart failure. 3. Atrial fibrillation, permanent. 4. Bi-V pacemaker in situ. 5. Hypotension. 6. Chronic kidney disease. PLAN: Mr. Owens has symptoms of lower extremity edema and abdominal distention out of proportion to shortness of breath with a primary diagnosis of acute on chronic cor pulmonale with underlying chronic systolic heart failure. One issue is hypotension precluding aggressive diuresis. Before optimizing pacemaker increasing rate, we recommend medical therapy optimization with the following. 1. Discontinue carvedilol and transition to Toprol-XL 25 mg daily, to increased blood pressure while on Flomax. 2. Agree with IV diuresis and IV Lasix drip for now, consider transition to oral Demadex at a later date when more euvolemic. Consultation Report [facility] [address] [place]. [address] NAME: ANSLEY OWENS : 29 STATUS : ADM IN PAT#: [id number] AGE: 85 ADM/REG DATE : 05/11/16 MR#: [id number] REPORT SERV DATE: 05/11/16 DICTATED BY: KARL BENITEZ. DATE: 05/11/16 REPORT STATUS : Draft TRANSCRIBED BY: MODL DATE: 05/11/16 3. Agree with decreasing Imdur to add hydralazine for afterload reduction. 4. Discontinue thiazide diuretic. 5. Close followup with labs. 6. Consider followup evaluation and pacemaker optimization once he has been diuresed and appears more euvolemic. No AMINATA/ARB due to stage 4 chronic kidney disease. AEA/MODL Karl Benitez M.D. / [id number] CC: Malcolm Joyner M.D.
--- NOTE | ~2016-05-11 | HP ---
History And Physical [address] [place]. [address] NAME: ANSLEY OWENS : 29 STATUS : ADM IN PAT#: [id number] AGE: 85 ADM/REG DATE : 05/11/16 MR#: [id number] REPORT SERV DATE: 05/14/16 DICTATED BY: REMA TARANGO DATE: 05/11/16 REPORT STATUS : Draft TRANSCRIBED BY: MODL DATE: 05/11/16 DATE OF ADMISSION: 05/11/2016 REASON FOR ADMISSION: Acute on chronic systolic heart failure. HISTORY OF PRESENT ILLNESS: Mr. Ansley Owens is an 85-year-old male with history of chronic systolic heart failure, atrial fibrillation, chronic kidney disease, total exacerbation one month ago. The patient apparently had diuresed well, his pacemaker was changed to a Bi-V unit, and he was discharged feeling well. Apparently, he had had a Miranda when he was discharged home. He had swelling that had progressed but he feels like it got worse after Miranda was removed by home health. At the suggestion of his primary care provider, Bumex was changed to Lasix, which did not help and in fact seemed to have accelerated the problem. His legs began weeping, and he came to the hospital for further evaluation. The patient notices increasing scrotal edema, abdominal girth. Breathing, however, has been okay. He has been on oxygen but only wears it at night. He denies any chest or abdominal pain. No coughing, wheezing, some mild orthopnea is noted but no nausea or vomiting. No gastrointestinal complaints. He has chronic BPH symptoms and history of scrotal edema as mentioned. He also has history of orthostatic intolerance. Remainder of review of systems are negative. PAST MEDICAL HISTORY: As mentioned above. He had an ASD repair remotely, questionable dementia, history of CABG and AICD replacement in the past. He also has history of monoclonal gammopathy of unclear significance. MEDICATIONS: This includes Flomax, Proscar, aspirin, amiodarone. The loop diuretics as mentioned above. BuSpar, Coreg, Imdur, Protonix, lorazepam, and Zocor, ALLERGIES: TO MORPHINE AND NAPROXEN. FAMILY HISTORY: Positive for . SOCIAL HISTORY: The patient has no tobacco, alcohol, or drugs. PHYSICAL EXAMINATION: VITAL SIGNS: On presentation, blood pressure 94/51, pulse 61, respiration 20, O2 sat 95%. GENERAL: Awake and alert and oriented x3. No apparent distress. HEENT: Pupils are equal, round, and reactive to light. Extraocular movements are intact. No cranial nerve deficits. Moist mucous membranes. Normal oropharynx. NECK: Revealed jugular venous pulsation 8 cm of water. No carotid bruit, lymphadenopathy, or goiter. CARDIAC EXAM: Regular rate and rhythm. No murmurs, gallops, or rubs. LUNGS: Clear to auscultation bilaterally. Good excursion. ABDOMEN: Mildly distended and tympanic, cannot really appreciate ascites or fluid wave. : However, scrotum revealed significant edema as did his genital. EXTREMITIES: Revealed 3+ edema with good pulses and capillary refill distally. NEUROLOGIC: Intact sensory and motor function in all four extremities. History And Physical [address] [address] NAME: ANSLEY OWENS : 29 STATUS : ADM IN [facility]#: [id number] AGE: 85 ADM/REG DATE : 05/11/16 MR#: [id number] REPORT SERV DATE: 05/14/16 DICTATED BY: REMA TARANGO DATE: 05/11/16 REPORT STATUS : Draft TRANSCRIBED BY: AYAD DATE: 05/11/16 SKIN: Warm and dry. PSYCHIATRIC: He is appropriate. LABORATORY EVALUATION: Sodium 140, potassium 4.3, chloride 101, bicarb 31, BUN 41, creatinine 1.9, glucose 113, white count 4,000, H and H 12/11, platelets 98. The pH 7.40, pCO2 of 49, pO2 of 79. Chest x-ray reviewed by me showed cardiomegaly and pulmonary edema. EKG reviewed by me, was paced. ASSESSMENT AND PLAN: 1. Acute on chronic systolic heart failure. Left heart symptoms are excessive. Diuretic infusion will be more effective than oral agent typically oral Lasix. We should, however, rule out venous thromboembolic disease as his limb edema is status post due to arrest, treating with low molecular weight heparin empirically. Doppler ultrasound will be ordered. SCDs will be put on if these are negative. Beside the diuretic infusion, we are aware of his hypotension. Imdur and Coreg will be reduced. We should continue digoxin, blood pressure is too low. Ionotropic support may need to be considered. We will consult with Cardiology regarding this problem and also regarding whether a higher pacemaker pulse rate would be beneficial. 2. History of atrial fibrillation. Anticoagulation is recommended. If his creatinine improves, he may be candidate for a novel oral anticoagulant, otherwise, warfarin. 3. Chronic kidney disease. Creatinine baseline of about 1.5 up to 1.9 possibly with some renal edema. We will follow up for now. I will give him diuretics. Hydralazine will be a favorable afterload passenger rate clerk compared to AMINATA inhibitor or angiotensin receptor param in this setting due to his cardiorenal syndrome. 4. Anemia, likely with pancytopenia, likely due to his monoclonal gammopathy of unclear significance. This does not appear to be progressive. There was no hypercalcemia. No evidence of myeloma at this time. No workup was necessary as an inpatient. SUSHIL/AYAD Rema Tarango M.D. / [id number] CC: Malcolm Joyner M.D. Gregg Shander, M.D.
[2016-05-11 11:14] LABS: BASOPHILS 0.5 %; BASOPHILS ABSOLUTE 0.02 10/3/uL (0.0-0.16); EOSINOPHILS 2.4 %; ER CBC TAT 0 Hrs 05 Mins; HEMATOCRIT 31.9 % (40.0-51.0); HEMOGLOBIN 10.1 g/dL (13.6-17.8); IMMATURE GRANULOCYTES 0.5 %; IMMATURE GRANULOCYTES ABSOLUTE 0.02 10/3/uL (0.0-0.11); LYMPHOCYTES 8.3 %; LYMPHOCYTES ABSOLUTE 0.35 10/3/uL (0.67-4.30); MANUAL DIFF NO %; MEAN CORPUS HGB CONC 31.7 g/dL (32.0-36.0); MEAN CORPUSCULAR HEMOGLOB 32.1 pg (26.0-34.0); MEAN CORPUSCULAR VOLUME 101.3 fL (80-100); MEAN PLATELET VOLUME 9.7 fL (9.2-13.0); MONOCYTES 6.7 %; MONOCYTES ABSOLUTE 0.28 10/3/uL (0.21-1.20); NEUTROPHILS 81.6 %; NEUTROPHILS ABSOLUTE 3.44 10/3/uL (2.02-8.40); PLATELET COUNT 98 10/3/uL (150-400); RBC DISTRIBUTION WIDTH 15.6 % (12.0-16.0); RED CELL COUNT 3.15 10/6/uL (4.7-6.1); WHITE BLOOD CELLS 4.2 10/3/uL (4.5-10.5)
[2016-05-11 11:27] LABS: A/G RATIO 0.9 (0.7-1.9); ALBUMIN 3.4 G/DL (3.5-5.0); ALKALINE PHOSPHATASE 106 U/L (45-117); BUN (BLOOD UREA NITROGEN) 41 MG/DL (6-23); CALCIUM, SERUM 8.5 MG/DL (8.5-10.4); CHLORIDE, SERUM 101 MMOL/L (96-112); CO2 (CARBON DIOXIDE) 31 MMOL/L (24-34); CREATININE 1.92 MG/DL (0.70-1.30); GFR AFRICAN AMERICAN 36 ML/MIN (>=60); GFR NON AFRICAN AMERICAN 31 ML/MIN (>=60); GLOBULIN 3.7 G/DL (2.5-4.1); POTASSIUM, SERUM 4.3 MMOL/L (3.5-5.3); SGOT(AST) 12 U/L (5-40); SGPT(ALT) 13 U/L (5-65); SODIUM, SERUM 140 MMOL/L (135-148); TOTAL PROTEIN 7.1 G/DL (6.0-8.5)
[2016-05-11 11:28] LABS: GLUCOSE, SERUM 113 MG/DL (60-99); TOTAL BILIRUBIN 1.2 MG/DL (0-1.2)
[2016-05-11 11:34] LABS: INFLUENZA A SCREEN NEGATIVE (NEGATIVE); INFLUENZA B SCREEN NEGATIVE (NEGATIVE)
[~2016-05-11 11:42] MED LIST changes: +ATV1 PO; +FLOMAX4 PO; +L40 PO; +PROSCAR5 PO; +ULTRAM50 PO
[2016-05-11] MEDS ORDERED: HYGROTON 25 MG25 MG PO (11:46)
[2016-05-11] MEDS ORDERED: COREG6 PO (11:47)
[2016-05-11] MEDS ORDERED: ZOCOR20 PO (11:47)
[2016-05-11] MEDS ORDERED: NEUR300 PO (11:47)
[2016-05-11] MEDS ORDERED: L20 PO (11:48)
[2016-05-11] MEDS ORDERED: CORDARONE PO (11:48)
[2016-05-11] MEDS ORDERED: IMDUR120 PO (11:48)
[2016-05-11] MEDS ORDERED: FLOMAX4 PO (11:49)
[2016-05-11] MEDS ORDERED: PROSCAR5 PO (11:49)
[2016-05-11] MEDS ORDERED: PROTONIX PO (11:49)
[2016-05-11] MEDS ORDERED: ASAB PO (11:49)
[2016-05-11] MEDS ORDERED: ULTRAM50 PO (11:50)
[2016-05-11] MEDS ORDERED: ZANAFLEX 4 MG TA4 MG PO (11:50)
[2016-05-11 12:41] LABS: ALLENS TEST Pos; CARBOXYHEMOGLOBIN 1.3 % (0-3); HCO3 (ACTUAL BICARBONATE) 29.6 MEQ/L (23-27); HEMOBLOGIN CONTENT 10.8 G/DL (14-18); INSTRUMENT SERIAL # 8087; METHEMOGLOBIN 0.1 % (0-3); O2 CONTENT 14.3 VOL% (18-24); OPERATOR ID 14335; PCO2 (CO2 TENSION) 49 MMHG (35-45); PO2 (O2 TENSION) 79 MMHG (79-93); SAMPLE Arterial
[2016-05-11 14:14] LABS: ASCORBIC ACID (UR NOT ORDER) NEG (NEG); BILIRUBIN, URINE NEGATIVE (NEG); ER URINALYSIS TAT 0 Hrs 14 Mins; KETONE, URINE NEGATIVE (NEG); LEUKOCYTE ESTERASE(NOT OR MOD (NEG); NITRITE (URINE) NEG (NEG); WBC (NOT ORDERED) (RFLEX) 37 (0-5)
[2016-05-12 04:42] LABS: BUN (BLOOD UREA NITROGEN) 39 MG/DL (6-23); CALCIUM, SERUM 8.5 MG/DL (8.5-10.4); CHLORIDE, SERUM 103 MMOL/L (96-112); CO2 (CARBON DIOXIDE) 31 MMOL/L (24-34); CREATININE 2.13 MG/DL (0.70-1.30); GFR AFRICAN AMERICAN 32 ML/MIN (>=60); GFR NON AFRICAN AMERICAN 27 ML/MIN (>=60); POTASSIUM, SERUM 4.4 MMOL/L (3.5-5.3); SODIUM, SERUM 143 MMOL/L (135-148)
[2016-05-12 04:46] LABS: GLUCOSE, SERUM 89 MG/DL (60-99); PHOSPHORUS, SERUM 2.8 MG/DL (2.5-4.5)
[2016-05-13 04:04] LABS: BASOPHILS 0.4 %; BASOPHILS ABSOLUTE 0.02 10/3/uL (0.0-0.16); EOSINOPHILS 1.6 %; EOSINOPHILS ABSOLUTE 0.08 10/3/uL (0.0-0.53); HEMATOCRIT 30.6 % (40.0-51.0); IMMATURE GRANULOCYTES 0.4 %; IMMATURE GRANULOCYTES ABSOLUTE 0.02 10/3/uL (0.0-0.11); LYMPHOCYTES 8.8 %; LYMPHOCYTES ABSOLUTE 0.43 10/3/uL (0.67-4.30); MANUAL DIFF NO %; MEAN CORPUS HGB CONC 32.7 g/dL (32.0-36.0); MEAN CORPUSCULAR HEMOGLOB 33.2 pg (26.0-34.0); MEAN CORPUSCULAR VOLUME 101.7 fL (80-100); MEAN PLATELET VOLUME 10.8 fL (9.2-13.0); MONOCYTES 10.5 %; MONOCYTES ABSOLUTE 0.51 10/3/uL (0.21-1.20); NEUTROPHILS 78.3 %; PLATELET COUNT 109 10/3/uL (150-400); RBC DISTRIBUTION WIDTH 15.4 % (12.0-16.0); RED CELL COUNT 3.01 10/6/uL (4.7-6.1); WHITE BLOOD CELLS 4.9 10/3/uL (4.5-10.5)
[2016-05-13 04:23] LABS: BUN (BLOOD UREA NITROGEN) 38 MG/DL (6-23); CALCIUM, SERUM 8.8 MG/DL (8.5-10.4); CHLORIDE, SERUM 101 MMOL/L (96-112); CO2 (CARBON DIOXIDE) 34 MMOL/L (24-34); CREATININE 1.95 MG/DL (0.70-1.30); FERRITIN 356 NG/ML (26-388); GFR AFRICAN AMERICAN 35 ML/MIN (>=60); GFR NON AFRICAN AMERICAN 30 ML/MIN (>=60); GLUCOSE, SERUM 90 MG/DL (60-99); POTASSIUM, SERUM 4.5 MMOL/L (3.5-5.3); SODIUM, SERUM 141 MMOL/L (135-148)
[2016-05-14 05:37] LABS: BUN (BLOOD UREA NITROGEN) 40 MG/DL (6-23); CALCIUM, SERUM 9.2 MG/DL (8.5-10.4); CHLORIDE, SERUM 98 MMOL/L (96-112); CO2 (CARBON DIOXIDE) 33 MMOL/L (24-34); GFR AFRICAN AMERICAN 32 ML/MIN (>=60); GFR NON AFRICAN AMERICAN 28 ML/MIN (>=60); GLUCOSE, SERUM 97 MG/DL (60-99); POTASSIUM, SERUM 4.5 MMOL/L (3.5-5.3); SODIUM, SERUM 141 MMOL/L (135-148)
[2016-05-14] MEDS ORDERED: CEFT5 PO (10:10)
[2016-05-14] MEDS ORDERED: IMDUR30 PO (10:13)
[2016-05-14] MEDS ORDERED: MAGOX4 (10:14)
[2016-05-14] MEDS ORDERED: TOPXL25 (10:15)
[2016-05-14] MEDS ORDERED: KDUR20 (10:17)
[2016-05-14] MEDS ORDERED: SPIRO25 PO (10:18)
[2016-05-14] MEDS ORDERED: DEMA20 PO (10:26)
[2016-05-14] MEDS ORDERED: APRES25 (10:27)
== END 2016-05-14 17:09 | disposition home or self-care (01) | DRG 291 ==
LOC: ER 11:42 → 7NO 14:19 → SDC/OF 05-14 13:03 → 7NO 05-14 13:04
PROVIDERS: Internal Medicine; Internal Medicine Cardiovascular Disease; Nurse Practitioner Family
DX: I13.0 Hypertensive heart and chronic kidney disease with heart failure and stage 1 through stage 4 chronic kidney disease, or unspecified chronic kidney disease (principal); I50.23 Acute on chronic systolic (congestive) heart failure; D61.818 Other pancytopenia; N18.4 Chronic kidney disease, stage 4 (severe); I27.81 Cor pulmonale (chronic); D47.2 Monoclonal gammopathy; I48.2 Chronic atrial fibrillation; Z95.1 Presence of aortocoronary bypass graft; I48.91 Unspecified atrial fibrillation; M54.5 Low back pain; N40.0 Benign prostatic hyperplasia without lower urinary tract symptoms; Z88.5 Allergy status to narcotic agent; Z95.810 Presence of automatic (implantable) cardiac defibrillator; Z82.49 Family history of ischemic heart disease and other diseases of the circulatory system; Z79.82 Long term (current) use of aspirin
CPT/HCPCS: 36415; 36600; 71010; 80048; 80053; 81001; 82728; 82805; 83735; 83880; 84100; 85025; 87040; 87070; 87077; 87086; 87186; 87205; 87804; 93005; 93970; 96374; 99285; A9270-GY; G0463; J1940